=== PATIENT | female | born 1985 | race Caucasian/White ===

== ENCOUNTER 2022-02-20 09:09 | Emergency (ER) | payer BC ==
[~2022-02-20] VITALS: Ht 160 cm; Wt 88.5 kg
[2022-02-20 09:16] VITALS: BP 129/97
[2022-02-20 10:13] LABS: BASOPHILS % (AUTO) 0.2 % (0.0-2.0); EOSINOPHILS % (AUTO) 0.5 % (0.0-4.0); HEMATOCRIT 43.4 % (36-48); HEMOGLOBIN 14.3 g/dL (12.0-16.0); LYMPHOCYTES # (AUTO) 1.8 K/uL (2.5-16.5); LYMPHOCYTES % (AUTO) 25.8 % (20.5-51.1); MEAN CORPUSCULAR HEMOGLOBIN 29 pg (27-31); MEAN CORPUSCULAR HGB CONC 33 g/dL (33-37); MEAN CORPUSCULAR VOLUME 87.6 fL (80-94); MONOCYTES # (AUTO) 0.5 K/uL (0.8-1.0); MONOCYTES % (AUTO) 6.6 % (1.7-9.3); NEUTROPHILS # (AUTO) 4.6 K/uL (1.8-7.7); NEUTROPHILS % (AUTO) 66.9 % (42.2-75.2); PLATELET COUNT (AUTO) 295 K/uL (140-450); RED BLOOD CELL COUNT(AUTO) 4.96 MIL/uL (4.20-5.40); RED CELL DISTRIBUTION WIDTH 12.9 % (11.6-13.7); WHITE BLOOD COUNT (AUTO) 6.8 K/uL (4.8-10.8)
--- NOTE | 2022-02-20 10:36 | NUR ---
36/F PRESENTS TO ED WITH C/O VAGINAL BLEEDING AND ABDOMINAL PAIN, STATES HX OF PCOS AND FELT A "SHARP POPPING PAIN" AND HAS BEEN BLEEDING HEAVIER THAN USUAL FOR HER MENSTRUAL, STATES SHE IS CONCERNED FOR A POSSIBLE "OVARIAN CYST RUPTURE." DENIES N/V/D, DIZZINESS OR VISION CHANGES.
[2022-02-20 11:10] LABS: APPEARANCE,URINE CLEAR (CLEAR); BILIRUBIN,URINE NEGATIVE (NEGATIVE); BLOOD, URINE 2+ (NEGATIVE); COLOR,URINE YELLOW (YELLOW); LEUKOCYTE ESTERASE ,URINE NEGATIVE (NEGATIVE); NITRITE, URINE NEGATIVE (NEGATIVE); PH,URINE 6.5 (5.0-9.0); UGLUCOSE NEGATIVE (NEGATIVE)
[2022-02-20] MEDS ORDERED: NAPR-54 PO (12:01)
[2022-02-20 12:10] VITALS: BP 131/75
[2022-02-20 12:45] LABS: ALBUMIN 3.5 g/dL (3.4-5.0); ANION GAP 11.7 (8-16); CARBON DIOXIDE 24.9 mmol/L (21-32); CREATININE 0.9 mg/dL (0.6-1.3); POTASSIUM 3.6 mmol/L (3.5-5.1); TOTAL BILIRUBIN 0.4 mg/dL (0.0-1.0)
[2022-02-20 13:21] LABS: WBC,URINE 0-5 /HPF (0-5)
== END 2022-02-20 12:10 | disposition home or self-care (01) ==
LOC: MED 09:09
DX: N93.9 Abnormal uterine and vaginal bleeding, unspecified (principal)
CPT/HCPCS: 36415; 76856; 80053; 81001; 81025; 84702; 85025; 86886; 86900; 86901; 87086; 99284; Q0092